=== PATIENT | female | born 1985 | race Caucasian/White ===

== ENCOUNTER 2023-01-19 08:30 | Day surgery (SDC) | payer BC ==
[~2023-01-19 08:30] MED LIST: ASTRINGYN 8 GM TP ONE; CEFAZOLIN 2 GM-D5W BAG** 2 GM/50 ML ML IV SCH; Lactated Ringers 1,000 ML IV SCH; XYLOCAINE 1%/Epi 1:100000 MDV 20 ML ONE
[2023-01-19] MEDS ORDERED: Lactated Ringers 1,000 ML IV ONE ×2 (08:32→10:20)
[2023-01-19] MEDS ORDERED: CEFAZOLIN 2 GM-D5W BAG** 2 GM/50 ML ML IV ONE (08:32)
[2023-01-19] MEDS ORDERED: OFIRMEV 1,000 MG/100 ML ML IV ONE (09:07)
[2023-01-19] MEDS ORDERED: OFIRMEV 100 ML IV ONE (09:08)
[2023-01-19] MEDS ORDERED: SUBLIMAZE 100 MCG/2 ML ONE ×3 (10:26→12:15)
[2023-01-19] MEDS ORDERED: DIPRIVAN 200 MG/20 ML IV ONE (10:26)
[2023-01-19] MEDS ORDERED: Versed 2 MG/2 ML Injection ONE (10:27)
[2023-01-19] MEDS ORDERED: TORAdol 30 mg Injection ONE (11:42)
[2023-01-19] MEDS ORDERED: Zofran 4 MG/2 ML VIAL ONE (11:42)
[2023-01-19 13:18] VITALS: BP 126/75; PULSE 70; O2SAT 97
--- NOTE | 2023-01-20 14:40 | OP ---
SURGERY DATE/TIME: 01/19/2023 1144 PREOPERATIVE DIAGNOSIS: Severe cervical dysplasia. POSTOPERATIVE DIAGNOSIS: Severe cervical dysplasia. PROCEDURE: Loop electrosurgical excision procedure (LEEP). SURGEON: Arash Newby D.O. SALES REPRESENTATIVE [employer]: Deepthi Lyle surgical garment assembly supervisor. ANESTHESIA: General. ESTIMATED BLOOD LOSS: Minimal. COMPLICATIONS: None. INDICATIONS: The risks, benefits, indications and alternatives of the procedure were reviewed with the patient prior to procedure. The patient understood the risk of infection, bleeding, cervical incompetence, infection and thromboembolic disorder associated with this procedure and desires to have this procedure as a possible means to alleviate her current medical condition. DESCRIPTION OF PROCEDURE AND FINDINGS: At this point the patient is taken to the operating room, given general sedation, placed in the dorsal lithotomy position, prepped and draped in the usual sterile fashion. A coated speculum is then placed into the patient's vagina and the cervix was then injected with approximately 8 cc of 1% lidocaine with epinephrine. From this point the loop instrument was used to excise the ectocervical portion with an in depth of 7 to 8 mm of ectocervical tissue which was excised in right to left motion and was done so without complication. An additional incision was made and 2 to 3 mm of endocervical tissue was excised in similar fashion. Again, hemostasis was noted by placing the loop instructional writer ball on the surface of the cervix. From this point hemostasis was obtained. Monsel solution was placed on the cervix for further hemostasis. From this point all instruments were removed from the patient's vaginal region. The patient was then taken out of the dorsal lithotomy position, was taken out of anesthesia and was then taken to the recovery room in stable condition. All instruments and laps were accounted for x2.
== END 2023-01-19 13:10 | disposition home or self-care (01) ==
LOC: SDC 08:30
PROVIDERS: ATTEND Obstetrics & Gynecology
DX: D06.9 Carcinoma in situ of cervix, unspecified (principal)
CPT/HCPCS: 81025; J0690; J1885; J2250; J2405; J2704; J3010; A9270-GY